=== PATIENT | female | born 1965 | race Two or more races ===

== ENCOUNTER 2022-09-21 22:59 | Emergency (ER) | payer OTHER ==
[2022-09-22] MEDS ORDERED: Acetaminophen 325 MG Tab PO ONE (02:01)
== END 2022-09-22 02:50 | disposition home or self-care (01) ==
LOC: JD.ED 22:59
DX: S00.12XA Contusion of left eyelid and periocular area, initial encounter (principal); T14.8XXA Other injury of unspecified body region, initial encounter; I10 Essential (primary) hypertension; E66.9 Obesity, unspecified; Z68.41 Body mass index [BMI] 40.0-44.9, adult; V59.50XA Passenger in pick-up truck or van injured in collision with unspecified motor vehicles in traffic accident, initial encounter; Y92.410 Unspecified street and highway as the place of occurrence of the external cause
CPT/HCPCS: 70450; 70450-26; 72125; 72125-26; 73130-26-RT; 73130-RT; 73502-26-RT; 73502-RT; 99284